=== PATIENT | female | born 1990 | race Caucasian/White ===

== ENCOUNTER 2019-02-20 06:53 | Inpatient (IN) | payer SELFPAY ==
[2019-02-20] MEDS ORDERED: Lorazepam 2 MG/ML VIAL ONE (07:16)
[2019-02-20] MEDS ORDERED: Morphine 4 MG/ML VIAL ONE (07:17)
[2019-02-20 07:32] LABS: #Basophils 0.1 thou/uL (0.0-0.2); #Lymphocytes 3.2 thou/uL (1.20-3.40); #Monocytes 1.6 thou/uL (0.11-0.59); %Basophils 0.3 % (0.0-1.0); %Eosinophils 0.1 % (0.0-10.0); %Neutrophils 75.5 % (42.0-75.0); Hemoglobin 11.5 g/dL (12.0-16.0); Mean Corpuscular HGB CONC 33.9 g/dL (32.0-36.0); Mean Corpuscular Hemoglobin 27.2 pg (27.0-31.0); Mean Platelet Volume 7.9 fL (7.4-10.4); Platelet Count 257 thou/uL (130-400); RBC Distribution Width 13.2 % (11.5-14.5); Red Blood Cell (RBC) Count 4.24 mill/uL (4.20-5.40); White Blood Cell (WBC) Count 19.8 thou/uL (4.8-10.8)
[2019-02-20 07:42] LABS: PTT 23.2 SEC (22.9-36.1); Prothrombin Time 13.3 SEC (12.0-14.7)
[2019-02-20 07:50] LABS: BHCG - Serum Negative (NEGATIVE); Pregs Control Background? CLEAR/WHITE (CLR/WHITE); Pregs Control Bar Appear? YES (CONTROL BAR)
[2019-02-20 08:00] LABS: ALT (SGPT) 15 U/L (8-55); AST (SGOT) 21 U/L (5-34); Albumin 4.5 g/dL (3.5-5.0); Alkaline Phosphatase 55 U/L (40-110); Anion Gap 14 mmol/L (10-20); BUN (Urea Nitrogen) 12 mg/dL (7.0-18.7); Bilirubin, Total 0.3 mg/dL (0.2-1.2); Calc. Creatinine Clearance 0 mL/min (70-130); Calcium 9.5 mg/dL (7.8-10.44); Carbon Dioxide 23 mmol/L (22-29); Chloride 103 mmol/L (98-107); Estimated GFR-MDRD 89; Globulin 3.6 g/dL (2.4-3.5); Glucose 111 mg/dL (70-105); Potassium 3.8 mmol/L (3.5-5.1); Protein, Total 8.1 g/dL (6.0-8.3); Sodium 136 mmol/L (136-145)
[2019-02-20 08:26] LABS: CKMB 4.2 ng/mL (0-6.6)
[2019-02-20] MEDS ORDERED: Enoxaparin Sodium 60 MG/0.6 ML SYRINGE ONE (08:44)
[2019-02-20] MEDS ORDERED: Aspirin Chewable 81 MG TAB ONE (08:44)
--- NOTE | 2019-02-20 09:05 | RAD ---
1 view chest: CLINICAL HISTORY: Injury COMPARISON: None FINDINGS: There is no focal consolidation, effusion, or pneumothorax. Cardiac silhouette is normal in size. No acute osseous abnormality. Radiopaque density overlies the left neck soft tissues. Correlate clinically. IMPRESSION: No focal consolidation.
[2019-02-20 11:09] LABS: Critical Call Chem Troponin I RESULT DECREASING
[2019-02-20] MEDS ORDERED: HYDROcodone/Acetaminophen 5/325 mg Tablet PO PRN (11:10)
[2019-02-20] MEDS ORDERED: Loperamide HCl 2 MG CAP PO PRN (11:10)
[2019-02-20] MEDS ORDERED: Ondansetron ODT 4 MG TAB PO PRN (11:10)
[2019-02-20] MEDS ORDERED: Senokot S 8.6-50 MG TAB PO PRN (11:10)
[2019-02-20] MEDS ORDERED: Loratadine 10 MG TAB PO PRN (11:10)
[2019-02-20] MEDS ORDERED: Acetaminophen 325 MG TAB PO PRN (11:10)
[2019-02-20] MEDS ORDERED: Diabetic Tussin 200 MG/10 ML UDCUP PO PRN (11:10)
[2019-02-20] MEDS ORDERED: hydrALAZINE 20 MG/ML VIAL SLOW IVP PRN (11:10)
[2019-02-20] MEDS ORDERED: Ondansetron PF 4 MG/2 ML Vial IVP PRN (11:10)
[2019-02-20] MEDS ORDERED: Calcium Carbonate 500 MG ChewTAB PO PRN (11:10)
[2019-02-20] MEDS ORDERED: Bisacodyl 10 MG SUPP PR PRN (11:10)
[2019-02-20] MEDS ORDERED: Cepastat Lozenges 1 LOZ PO PRN (11:10)
[2019-02-20] MEDS ORDERED: Sodium Chloride 0.65% Nasal 44 ML BOT EA NARE PRN (11:10)
[2019-02-20] MEDS ORDERED: Morphine 2 MG/ML SYRINGE SLOW IVP PRN (11:14)
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
[2019-02-20 12:45] VITALS: BMI 24.6
[2019-02-20] MEDS: Sodium Chloride 0.9% 1,000 ML IV SCH ×2 (13:15→23:26)
[2019-02-20] MEDS: Ketorolac Tromethamine 30 MG/ML VIAL IVP PRN (13:48)
[2019-02-20 14:05] LABS: Critical Call Chem Troponin I RESULT DECREASING; Troponin I 0.377 ng/mL (< 0.028)
[2019-02-20] MEDS: Fentanyl 100 MCG/2 ML VIAL SLOW IVP PRN ×2 (18:38→23:25)
[2019-02-20] MEDS: Famotidine 20 MG TAB PO SCH (19:43)
[2019-02-21] MEDS: Fentanyl 100 MCG/2 ML VIAL SLOW IVP PRN (04:22)
[2019-02-21 06:09] LABS: #Basophils 0.1 thou/uL (0.0-0.2); #Lymphocytes 2.8 thou/uL (1.20-3.40); #Monocytes 0.6 thou/uL (0.11-0.59); #Neutrophils 5.2 thou/uL (1.40-6.50); %Basophils 0.7 % (0.0-1.0); %Eosinophils 0.5 % (0.0-10.0); %Monocytes 7.3 % (0.0-10.0); %Neutrophils 59.5 % (42.0-75.0); Hemoglobin 10.2 g/dL (12.0-16.0); Mean Corpuscular HGB CONC 32.7 g/dL (32.0-36.0); Mean Corpuscular Hemoglobin 27.2 pg (27.0-31.0); Mean Platelet Volume 7.8 fL (7.4-10.4); Platelet Count 208 thou/uL (130-400); RBC Distribution Width 13.2 % (11.5-14.5); Red Blood Cell (RBC) Count 3.75 mill/uL (4.20-5.40); White Blood Cell (WBC) Count 8.7 thou/uL (4.8-10.8)
[2019-02-21 06:25] LABS: ALT (SGPT) 11 U/L (8-55); AST (SGOT) 18 U/L (5-34); Albumin 3.5 g/dL (3.5-5.0); Alkaline Phosphatase 42 U/L (40-110); Anion Gap 9 mmol/L (10-20); BUN (Urea Nitrogen) 13 mg/dL (7.0-18.7); Bilirubin, Total 0.5 mg/dL (0.2-1.2); Calc. Creatinine Clearance 108 mL/min (70-130); Calcium 8.4 mg/dL (7.8-10.44); Carbon Dioxide 25 mmol/L (22-29); Cardiac Risk 2.5 (Less than 4.5); Chloride 107 mmol/L (98-107); Cholesterol 111 mg/dl (< 200 Desired); Estimated GFR-MDRD 89; Globulin 2.8 g/dL (2.4-3.5); Glucose 84 mg/dL (70-105); HDL Cholesterol 44 mg/dL (>60 Neg Risk); LDL Cholesterol, Calculated 54 mg/dL; Potassium 4.2 mmol/L (3.5-5.1); Protein, Total 6.3 g/dL (6.0-8.3); Sodium 137 mmol/L (136-145); Triglycerides 66 mg/dL (Less than 150)
[2019-02-21] MEDS: Ketorolac Tromethamine 30 MG/ML VIAL IVP PRN ×2 (07:53→14:25)
[2019-02-21] MEDS: Aspirin Chewable 81 MG TAB PO SCH (07:54)
[2019-02-21] MEDS: Famotidine 20 MG TAB PO SCH ×2 (07:56→22:49)
[2019-02-21] MEDS: Sodium Chloride 0.9% 1,000 ML IV SCH ×2 (08:00→22:49)
[2019-02-21] MEDS: Enoxaparin Sodium 40 MG/0.4 ML SYRINGE SC SCH (09:31)
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
[2019-02-21] MEDS ORDERED: Ondansetron PF 4 MG/2 ML Vial ONE (12:29)
[2019-02-21] MEDS ORDERED: Dexamethasone 20 MG/5 ML VIAL ONE (12:29)
[2019-02-21] MEDS ORDERED: Rocuronium Bromide 10 MG/ML (10ML VIAL) ONE (12:29)
[2019-02-21] MEDS ORDERED: Lidocaine 1% PF 5 ML VIAL ONE (12:29)
[2019-02-21] MEDS ORDERED: PROPOFOL 200 MG/20 ML VIAL ONE (12:29)
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
[2019-02-21] MEDS ORDERED: Regadenoson 0.4 MG/5 ML SYRINGE ONE (14:34)
--- NOTE | 2019-02-21 15:48 | NM ---
EXAM: Nuclear Medicine Cardiac SPECT with EF and wall motion: HISTORY: Smoking history preoperative evaluation Protocol: Exam was performed using Lexiscan protocol. The patient is injected with30.7 millicuries of technetium 99m sestamibi intravenously for stress indra ges. The patient is injected with9.0 millicuries of technetium 99 sestamibi intravenously for resting imag es. Multiple SPECT images are performed in the short axis, vertical long axis, and horizontal long axis. FINDINGS: No scan evidence for infarct or ischemia. TID:1.03 LHR:0.64 EDV:104 mL EF:66% Wall motion:No significant wall motion abnormality. IMPRESSION: Unremarkable cardiac SPECT with EF and wall motion.
[2019-02-21] MEDS ORDERED: Lidocaine 1% w/Epinephrine 1:100K 20 ML VIAL ONE (16:18)
[2019-02-21] MEDS ORDERED: Chlorhexidine Gluconate 15 ML UDCUP SSP ONE (16:18)
[2019-02-21] MEDS ORDERED: Hydrocortisone 1% Cream 30 GM TUBE ONE (16:18)
[2019-02-21] MEDS ORDERED: Bacitracin Zinc Ointment 30 gm TUBE ONE (16:18)
[2019-02-21] MEDS ORDERED: Sodium Chloride 0.9% 0 ML ONE (16:18)
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
--- NOTE | 2019-02-21 16:47 | PDOC.EVN ---
Event Note - Event Note Event Note: Patient with negative nuclear medicine stress test and normal echocardiogram. Low risk for surgery at this time. Recommended proceed with maxillofacial surgery.
[2019-02-21] MEDS ORDERED: Fentanyl 100 MCG/2 ML VIAL ONE ×4 (17:20→20:57)
[2019-02-21] MEDS ORDERED: Clindamycin/D5W 600 mg/50 ml Premix Bag ONE (17:45)
[2019-02-21] MEDS ORDERED: Oxymetazoline HCl 0.05% ( 15 ML ) ONE (18:05)
[2019-02-21] MEDS ORDERED: Lidocaine 2% Jelly 5 ML TUBE ONE (18:06)
[2019-02-21] MEDS ORDERED: Meperidine HCl/PF 25 MG/ML VIAL SLOW IVP PRN (20:21)
[2019-02-21] MEDS ORDERED: HYDROmorphone 2 MG/ML VIAL SLOW IVP PRN (20:21)
[2019-02-21] MEDS ORDERED: Ondansetron HCl/PF 4 MG/2 ML Vial IVP PRN (20:21)
[2019-02-21] MEDS ORDERED: Promethazine HCl 25 MG/ML VIAL SLOW IVP PRN (20:21)
[2019-02-21] MEDS ORDERED: Promethazine HCl 25 MG/ML VIAL IM PRN (20:21)
[2019-02-21] MEDS ORDERED: Morphine Sulfate 2 MG/ML SYRINGE SLOW IVP PRN (20:21)
[2019-02-21] MEDS ORDERED: PACU-Morphine 4MG/ML VIAL SLOW IVP PRN (20:21)
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
[2019-02-22] MEDS: Morphine 2 MG/ML SYRINGE SLOW IVP PRN (00:56)
[2019-02-22] MEDS: Clindamycin/D5W 600 MG in Premix Bag 1 BAG IVPB SCH ×3 (02:21→18:26)
[2019-02-22] MEDS: Fentanyl 100 MCG/2 ML VIAL SLOW IVP PRN (02:30)
[2019-02-22] MEDS: Sodium Chloride 0.9% 1,000 ML IV SCH ×2 (06:05→16:45)
[2019-02-22] MEDS ORDERED: Nitroglycerin 0.4 MG TAB (25 Tab Bottle) ONE (06:59)
[2019-02-22] MEDS ORDERED: hydrOXYzine 25 MG TAB PO PRN (07:22)
[2019-02-22] MEDS: Famotidine 20 MG TAB PO SCH ×2 (08:52→20:44)
[2019-02-22] MEDS: Chlorhexidine Gluconate 15 ML UDCUP SSP SCH ×2 (08:52→20:43)
[2019-02-22] MEDS: Aspirin Chewable 81 MG TAB PO SCH (08:52)
[2019-02-22] MEDS: Enoxaparin Sodium 40 MG/0.4 ML SYRINGE SC SCH (08:53)
[2019-02-22] MEDS: Ketorolac Tromethamine 30 MG/ML VIAL IVP PRN ×2 (09:20→15:00)
[2019-02-22] MEDS ORDERED: ISOVUE-370 76%-LOCM 1 ML ONE (10:09)
[2019-02-22] MEDS ORDERED: Hydrocodone-Acetamin 15 ML UDCUP PO PRN (10:56)
--- NOTE | 2019-02-22 12:47 | CT ---
CTA CHEST WITH CONTRAST: Date: 02/22/19 Axial tomograms obtained with multiplanar reconstruction. 3D postprocessing performed according to an uriel protocol. INDICATION: Chest pain, shortness of breath. Postop status. FINDINGS: Pulmonary arteries show adequate enhancement. No evidence of pulmonary embolus identified. The lungs show streaky atelectasis and/or infiltrate in the posterior lung bases. No effusion. Medias tinum unremarkable. Nonspecific mediastinal and hilar lymph nodes. No evidence of thoracic aortic dis section. IMPRESSION: 1. No evidence of pulmonary embolus. 2. Streaky atelectasis/infiltrate in the posterior lung bases. POS: [facility]
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
[2019-02-22] MEDS: traMADol HCl 50 MG TAB PO PRN ×2 (16:37→21:02)
[2019-02-23] MEDS: Clindamycin/D5W 600 MG in Premix Bag 1 BAG IVPB SCH ×3 (02:24→17:35)
[2019-02-23] MEDS: Sodium Chloride 0.9% 1,000 ML IV SCH ×3 (04:51→13:59)
[2019-02-23] MEDS: traMADol HCl 50 MG TAB PO PRN (04:55)
[2019-02-23] MEDS: Ketorolac Tromethamine 30 MG/ML VIAL IVP PRN ×3 (07:49→20:08)
[2019-02-23] MEDS: Aspirin Chewable 81 MG TAB PO SCH (09:15)
[2019-02-23] MEDS: Chlorhexidine Gluconate 15 ML UDCUP SSP SCH ×2 (09:16→20:08)
[2019-02-23] MEDS: Enoxaparin Sodium 40 MG/0.4 ML SYRINGE SC SCH (09:16)
[2019-02-23] MEDS: Famotidine 20 MG TAB PO SCH ×2 (09:16→20:07)
[2019-02-23] MEDS: Acetaminophen 325 MG TAB PO SCH ×3 (12:15→23:31)
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
[2019-02-23] MEDS: Morphine 2 MG/ML SYRINGE SLOW IVP PRN ×2 (17:37→23:45)
[2019-02-23] MEDS: Fluticasone Propionate Nasal Spray 16 gm Bottle NASAL SCH (21:20)
[2019-02-24] MEDS: Clindamycin/D5W 600 MG in Premix Bag 1 BAG IVPB SCH ×2 (01:53→10:24)
--- NOTE | 2019-02-24 03:05 | EKG ---
Test Reason : Blood Pressure : / mmHG Vent. Rate : 080 BPM Atrial Rate : 080 BPM P-R Int : 148 ms QRS Dur : 076 ms QT Int : 402 ms P-R-T Axes : 044 010 011 degrees QTc Int : 463 ms Normal sinus rhythm with sinus arrhythmia Septal infarct , age undetermined Abnormal ECG Confirmed by JOSETTE CHANEL D.O. ([id number]), deputy editor in chief LIN WINTERS ([id number]) on 02/24/2019 3:05:10 AM Referred By: Confirmed By:JOSETTE CHANEL D.O.
[2019-02-24] MEDS: Morphine 2 MG/ML SYRINGE SLOW IVP PRN ×2 (03:44→09:02)
[2019-02-24] MEDS: Sodium Chloride 0.9% 1,000 ML IV SCH (04:11)
[2019-02-24] MEDS: Acetaminophen 325 MG TAB PO SCH ×4 (05:44→23:30)
[2019-02-24] MEDS: Ketorolac Tromethamine 30 MG/ML VIAL IVP PRN ×3 (05:45→20:10)
[2019-02-24] MEDS: Aspirin Chewable 81 MG TAB PO SCH (08:55)
[2019-02-24] MEDS: Famotidine 20 MG TAB PO SCH ×2 (08:55→20:11)
[2019-02-24] MEDS: Enoxaparin Sodium 40 MG/0.4 ML SYRINGE SC SCH (08:56)
[2019-02-24] MEDS: Chlorhexidine Gluconate 15 ML UDCUP SSP SCH ×2 (08:56→20:10)
[2019-02-24] MEDS: Fluticasone Propionate Nasal Spray 16 gm Bottle NASAL SCH ×2 (09:04→20:12)
[2019-02-24] MEDS ORDERED: Morphine 2 MG/ML SYRINGE SLOW IVP PRN (11:19)
[2019-02-24] MEDS: Clindamycin 150 MG CAP PO SCH ×3 (11:53→23:27)
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
[2019-02-24] MEDS: traMADol HCl 50 MG TAB PO PRN (17:55)
[2019-02-24] MEDS: Zolpidem Tartrate 5 MG TAB PO PRN (20:24)
[2019-02-25] MEDS: Ketorolac Tromethamine 30 MG/ML VIAL IVP PRN ×3 (03:03→19:41)
[2019-02-25] MEDS: Acetaminophen 325 MG TAB PO SCH ×3 (05:48→18:10)
[2019-02-25] MEDS: Clindamycin 150 MG CAP PO SCH ×4 (05:48→23:36)
[2019-02-25] MEDS: traMADol HCl 50 MG TAB PO PRN ×3 (05:48→20:53)
[2019-02-25] MEDS: Chlorhexidine Gluconate 15 ML UDCUP SSP SCH ×2 (09:53→19:40)
[2019-02-25] MEDS: Aspirin Chewable 81 MG TAB PO SCH (09:53)
[2019-02-25] MEDS: Famotidine 20 MG TAB PO SCH ×2 (09:53→19:40)
[2019-02-25] MEDS: Fluticasone Propionate Nasal Spray 16 gm Bottle NASAL SCH ×2 (09:54→19:43)
[2019-02-25] MEDS: Enoxaparin Sodium 40 MG/0.4 ML SYRINGE SC SCH (09:54)
--- NOTE | 2019-02-25 11:33 | EKG ---
Test Reason : Blood Pressure : / mmHG Vent. Rate : 049 BPM Atrial Rate : 049 BPM P-R Int : 156 ms QRS Dur : 082 ms QT Int : 458 ms P-R-T Axes : -88 065 047 degrees QTc Int : 413 ms Unusual P axis, possible ectopic atrial bradycardia Abnormal ECG When compared with ECG of 20-FEB-2019 07:56, (Unconfirmed) Ectopic atrial rhythm has replaced Sinus rhythm Vent. rate has decreased BY 31 BPM T wave inversion no longer evident in Inferior leads Confirmed by Adrianna FERREIRA ([id number]) on 02/25/2019 11:33:33 AM Referred By: FELY Confirmed By:Adrianna FERREIRA
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
[2019-02-25] MEDS: Zolpidem Tartrate 5 MG TAB PO PRN (20:52)
[2019-02-26] MEDS: Acetaminophen 325 MG TAB PO SCH ×3 (00:25→11:29)
[2019-02-26] MEDS: Ketorolac Tromethamine 30 MG/ML VIAL IVP PRN ×2 (02:24→08:54)
[2019-02-26] MEDS: traMADol HCl 50 MG TAB PO PRN ×2 (05:21→12:00)
[2019-02-26] MEDS: Clindamycin 150 MG CAP PO SCH ×2 (05:21→11:28)
[2019-02-26] MEDS: Aspirin Chewable 81 MG TAB PO SCH (08:50)
[2019-02-26] MEDS: Famotidine 20 MG TAB PO SCH (08:51)
[2019-02-26] MEDS: Fluticasone Propionate Nasal Spray 16 gm Bottle NASAL SCH (08:51)
[2019-02-26] MEDS: Enoxaparin Sodium 40 MG/0.4 ML SYRINGE SC SCH (08:53)
[2019-02-26] MEDS: Chlorhexidine Gluconate 15 ML UDCUP SSP SCH (09:29)
[2019-02-26 15:10] VITALS: BP 90/57; TEMP 97.9
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
--- NOTE | 2019-02-27 09:32 | PQF ---
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 Clinical indicators are provided on the bottom of this form for your review Please check appropriate box(s) to clarify if the following diagnosis has been ruled in or ruled out: NSTEMI type 2 [ XX ] Ruled in diagnosis [ ] Continue to treat [ ] Resolved [ ] Ruled out diagnosis [ ] Cannot rule out diagnosis [ ] Other diagnosis [ ] Unable to determine For continuity of documentation, please document condition throughout progress notes and discharge summary. Thank You. CLINICAL INDICATORS - SIGNS / SYMPTOMS / LABS - NSTEMI, demand ischemia type 2- H&P, 02/20, Lisa Gonzalez MD - Troponin: 0.541, 0.440- H&P, 02/20, Lisa Gonzalez MD - abstatin from cocaine use as this has been known to cause type 2 infarcts as was identified in this patient--DS, 02/26, Irving Cooper MD - No reversible ischemia identified on nuclear medicine stress test--DS, 02/26, Irvnig Cooper MD - cardiac enzymes were elevated and this was liklely attributed to cocaine--DS, 02/26, Irving Cooper MD - elevated troponin- Hospital PN, 02/22, Irving Cooper MD RISK FACTORS -Acute mandibular fracture-DS, 02/26, Irving Cooper MD -Atelectasis- Hospital PN, 02/22, Irving Cooper MD -Cocaine abuse- Hospital PN, 02/22, Irving Cooper MD TREATMENTS -Cardiology consult--DS, 02/26, Irving Cooper MD -Aspirin.PO-H&P, 02/20, Lisa Gonzalez MD [employer] Winform Viewer (This form is maintained as a part of the permanent medical record) 2014 [employer]. All Rights Reserved Amelia Freeman [not provided] [not provided] MTDD
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
== END 2019-02-26 17:40 | disposition home or self-care (01) | DRG 131 ==
LOC: ERS 06:53 → 2NO 12:23 → EEVIPCON 12:23 → SURG B 02-21 22:30
PROVIDERS: ADMIT Internal Medicine; ATTEND Internal Medicine
PROC: 0NSV04Z Reposition Left Mandible with Internal Fixation Device, Open Approach (ICD-10-PCS; principal; 2019-02-21)
PROC: 0CDWXZ0 Extraction of Upper Tooth, Single, External Approach (ICD-10-PCS; 2019-02-21)
DX: S02.609A Fracture of mandible, unspecified, initial encounter for closed fracture (principal); I21.A1 Myocardial infarction type 2; J98.11 Atelectasis; D72.828 Other elevated white blood cell count; S02.5XXA Fracture of tooth (traumatic), initial encounter for closed fracture; R79.89 Other specified abnormal findings of blood chemistry; Y08.89XA Assault by other specified means, initial encounter
CPT/HCPCS: 36415; 70486; 71045; 71275; 78452; 80053; 80061; 82553; 84484; 84703; 85025; 85610; 85730; 86850; 86900; 86901; 93005; 93010; 93017; 93306; 96361; 96372; 96374; 96375; A9500; C1713; G0390; J1100; J1650; J1885; J2001; J2060; J2270; J2405; J2704; J2785; J3010; J3490; Q9966

== ENCOUNTER 2019-03-07 08:09 | Emergency (ER) | payer SELFPAY ==
[2019-03-07 08:59] LABS: Hemoglobin 11.4 g/dL (12.0-16.0); Mean Corpuscular Volume 81.5 fL (78.0-98.0); Red Blood Cell (RBC) Count 4.38 mill/uL (4.20-5.40)
[2019-03-07 09:00] LABS: #Basophils 0.1 thou/uL (0.0-0.2); #Monocytes 0.7 thou/uL (0.11-0.59); #Neutrophils 7.3 thou/uL (1.40-6.50); %Basophils 0.6 % (0.0-1.0); %Eosinophils 0.3 % (0.0-10.0); %Lymphocytes 19.7 % (21.0-51.0); %Monocytes 6.5 % (0.0-10.0); %Neutrophils 72.8 % (42.0-75.0); Mean Corpuscular HGB CONC 31.9 g/dL (32.0-36.0); Mean Platelet Volume 8.5 fL (7.4-10.4); Platelet Count 298 thou/uL (130-400); RBC Distribution Width 13.9 % (11.5-14.5)
[2019-03-07 09:09] LABS: BHCG - Serum Negative (NEGATIVE); Pregs Control Background? CLEAR/WHITE (CLR/WHITE); Pregs Control Bar Appear? YES (CONTROL BAR)
[2019-03-07 09:26] LABS: ALT (SGPT) 16 U/L (8-55); AST (SGOT) 19 U/L (5-34); Albumin 4.6 g/dL (3.5-5.0); Alkaline Phosphatase 62 U/L (40-110); Anion Gap 13 mmol/L (10-20); BUN (Urea Nitrogen) 15 mg/dL (7.0-18.7); Bilirubin, Total 0.8 mg/dL (0.2-1.2); Calc. Creatinine Clearance 0 mL/min (70-130); Calcium 9.8 mg/dL (7.8-10.44); Carbon Dioxide 26 mmol/L (22-29); Chloride 101 mmol/L (98-107); Estimated GFR-MDRD 80; Globulin 3.9 g/dL (2.4-3.5); Glucose 91 mg/dL (70-105); Protein, Total 8.5 g/dL (6.0-8.3); Sodium 136 mmol/L (136-145)
[2019-03-07] MEDS ORDERED: Ondansetron PF 4 MG/2 ML Vial ONE (10:30)
[2019-03-07] MEDS ORDERED: Fentanyl 100 MCG/2 ML VIAL ONE (10:30)
[2019-03-07] MEDS ORDERED: Ketorolac Tromethamine 30 MG/ML VIAL ONE (11:31)
== END 2019-03-07 12:27 | disposition home or self-care (01) ==
LOC: ERS 08:09
DX: R55 Syncope and collapse (principal); G89.18 Other acute postprocedural pain; F17.210 Nicotine dependence, cigarettes, uncomplicated; Z79.899 Other long term (current) drug therapy
CPT/HCPCS: 36415; 80053; 84484; 84703; 85025; 86850; 86900; 86901; 93005; 94760; 96361; 96374; 96375; J1885; J2405; J3010